=== PATIENT | female | born 1965 | race Caucasian/White ===

== ENCOUNTER → 2024-08-19 15:15 | Outpatient (REF) | payer BC, SELFPAY | LOC: RAD 15:15 | PROVIDERS: ATTENDING PHYSICIAN Internal Medicine Rheumatology; FAMILY PHYSICIAN Internal Medicine | DX: M16.11 Unilateral primary osteoarthritis, right hip (principal); M17.10 Unilateral primary osteoarthritis, unspecified knee; M19.90 Unspecified osteoarthritis, unspecified site; M35.9 Systemic involvement of connective tissue, unspecified | CPT/HCPCS: 73130; 73523; 73560; 73565 ==

== ENCOUNTER → 2024-09-17 10:10 | Outpatient (REF) | payer BC, SELFPAY | LOC: RAD 10:10 | PROVIDERS: ATTENDING PHYSICIAN Internal Medicine Rheumatology; FAMILY PHYSICIAN Internal Medicine | DX: M81.0 Age-related osteoporosis without current pathological fracture (principal) | CPT/HCPCS: 77080 ==

== ENCOUNTER 2025-01-21 18:29 | Emergency (ER) | payer BC, SELFPAY ==
[2025-01-21 18:35] VITALS: BP 169/97
--- NOTE | 2025-01-21 21:41 | ED.SKININJ ---
HPI-Injury
General
Chief Complaint: Eye Problems
Source: patient
Exam Limitations: none
Time Seen by Provider: 01/21/25 21:02
Nursing documentation reviewed up to this point in time: agreed with
History of Present Illness-Injury
Initial Injury comments:
59-year-old female with history of HTN states she was walking her dog earlier this evening when a neighbors dog ran up and dust flew up, she continued walking her dog and about 5 minutes later she felt irritation in her right eye. The eye has
become more irritated as time progresses and when she removed her contacts, the right eye felt 'dry and I had trouble getting the contact out.'
She denies change in vision. Denies foreign body sensation
Past History
Past History
ED Past Medical History: HTN and Other (Cardiomyopathy)
ED Past Surgical History: None
Social History
Tobacco: Non-smoker
Alcohol: None
Personal:
Living: with family
Employment: Employed
Review of Systems
Review of Systems
Allergies reviewed?: Yes
All Other Systems: ROS reviewed and negative except as documented in HPI and ROS
Phy Exam
Physical Exam
Physical Exam:
PHYSICAL EXAMINATION:
General: no apparent distress, not acutely ill
Neuro: alert and oriented.
Psychiatric: well kept. interactive and cooperative
Musculoskeletal: Moves with ease
Skin: Warm, pink.
Eye Exam
Eye Exam: PERRL, EOMI, cornea clear, conjunctiva normal (Conjunctiva injected and mild chemosis), disc sharp, globe normal, visual garcia normal and other (Fluorescein stain reveals no corneal abrasion. There is no foreign body in the eye or up
under the lid)
Course
Orders/Labs/Results
Orders:
Orders
01/21/25 20:51
Fluorescein Sodium [Ful-Lyla] 1 mg .ROUTE .STK-MED ONE
Purified Water Eye Wash [Dacriose Eye Wash Solution] 120 ml .ROUTE .STK-MED ONE
Tetracaine HCl [Tetracaine 0.5% Ophthalmic Solution] 1 drop .ROUTE .STK-MED ONE
01/21/25 21:42
Visual Acuity- Treatment ONCE
Vital Signs
Initial and Last Documented VS:
Initial Vital Signs
Temp Pulse Resp BP Pulse Ox
98.1 F 62 18 169/97 100
01/21/25 18:35 01/21/25 18:35 01/21/25 18:35 01/21/25 18:35 01/21/25 18:35
Last Documented Vital Signs
Temp Pulse Resp BP Pulse Ox
98.1 F 62 18 169/97 100
01/21/25 18:35 01/21/25 18:35 01/21/25 18:35 01/21/25 18:35 01/21/25 21:42
MDM/Problems Addressed
Differential Diagnosis Includes:
Corneal abrasion, foreign body, allergic reaction, iritis
MDM/Problems Addressed:
59-year-old female with history of HTN states she was walking her dog earlier this evening when a neighbors dog ran up and dust flew up, she continued walking her dog and about 5 minutes later she felt irritation in her right eye. The eye has
become more irritated as time progresses and when she removed her contacts, the right eye felt 'dry and I had trouble getting the contact out.'
She denies change in vision. Denies foreign body sensation
Using a slit lamp, fluorescein stain reveals no foreign body or abrasion. There is no cilial flare of iritis.
With the mild chemosis, conjunctival mildly injected, eye is tearing, exam is most consistent with some kind of mild allergic reaction perhaps a bug flew in her eye, she said her neighbor treated her lawn today and there were little white beads on
the lawn, could be a reaction to the 1 chemical
Plan: Cool compresses, ibuprofen or Tylenol for discomfort, she took a Zyrtec prior to coming here tonight. Informed her to take Benadryl 50 mg before bed tonight.
She incidentally called her [facility] office earlier this morning to make an appointment and is waiting for a callback so she will see them in the next day or 2
*Pulse Oximetry
SaO2: 100
Oxygen Mode of Delivery: Room air
Patient hypoxic: not evaluated
*Critical Care Note
Total Time (30-74mins, 75-104mins- exclusive of procedures): Not Applicable
ED Attending Note
-
Portions of this chart may have been created with voice recognition software.� Occasional wrong word or��sound alike� substitutions may have occurred due to the inherent limitations of voice recognition software.
Discharge Plan
Departure
Patient Disposition: Home (Routine Discharge)
Date of Disposition: 01/21/25
Time of Disposition: 21:47
Patient with high blood pressure during this ER visit?: No
Condition: Good
Discharge Problem:
Irritation of right eye, Chemosis of right conjunctiva
Prescriptions:
No Action
losartan-hydrochlorothiazide 1 EACH tablet
1 ea PO DAILY
Referrals:
Your Eye Doctor [Other] - Tomorrow
Ivan Casas MD [Family Provider, Internal Medicine]
Activity Restrictions/Additional Instructions:
As we discussed, call your eye doctor back tomorrow if they do not call you first and make an appointment to be seen tomorrow or the next day.
Cool compress to the eye 15 minutes off and on today and tomorrow as needed for swelling
Your exam is more consistent with a allergic reaction or a reaction to something that your eye came in contact with. There is no visible abrasion, no foreign body, no contact lens type injury or inflammation.
No contact lens wearing until further instructed by your eye doctor.
Take Benadryl 50 mg before bed tonight
Interventions
Interventions:
*Risk Screen - Suicide Last Done: 01/21/25 18:35
*General Assessment Last Done: 01/21/25 18:35
*Neglect/Abuse Screening Last Done: 01/21/25 18:35
*Nursing Disposition Last Done: 01/21/25 22:03
Discharge Date and Time
Discharge Date/Time: 01/21/25 22:04
Print Language: VIET[place]ESE
== END 2025-01-21 22:04 | disposition home or self-care (01) ==
LOC: EMR 18:29
PROVIDERS: EMERGENCY PHYSICIAN Emergency Medicine; FAMILY PHYSICIAN Internal Medicine
DX: H11.421 Conjunctival edema, right eye (principal); I10 Essential (primary) hypertension; I42.9 Cardiomyopathy, unspecified
CPT/HCPCS: 99283